=== PATIENT | male | born 1980 | race Caucasian/White ===

== ENCOUNTER 2024-05-25 05:57 | Day surgery (SDC) | payer OTHER, SELFPAY ==
[2024-05-23 15:03] VITALS: BMI 31.4
--- NOTE | 2024-05-23 15:11 | PC.NURSE ---
Report to the Outpatient Waiting Room, entrance under the green pavilion located off [facility], at time _0700__ on date _05/25/24_. Planned Procedure Time: _0900_.? Time changes happen often and if your time is changed the preop area will call you the afternoon before. - You and your visitor will be asked to self-screen and do not enter if you have any COVID symptoms. Please call surgeon if you need to reschedule. - A mask is optional within the hospital at this time. Patients may have clear liquids (water, carbonated beverages, clear teas, apple juice) until 3 hours prior to surgery with a maximum of 20 ounces. - No food from midnight until time of surgery and no smoking, or chewing tobacco (or any form of nicotine). No chewing gum, candy or mints. - Infants may have breast milk until 4 hours before surgery, infant formula 6 hours prior to surgery. - Children will be allowed to drink immediately following surgery.? If applicable, please bring a bottle or sippy cup to assist with drinking. Juice, water, soda, and popsicles are readily available.? For infants on formula, please bring formula the day of surgery.? Pacifiers are allowed. Take only the following medications with a SIP of water on the morning of surgery: ____NONE DO NOT STOP ANY OF YOUR OTHER PRESCRIPTION MEDICATIONS PRIOR TO SURGERY EXCEPT THE FOLLOWING Hold all vitamins and supplements for 3 days per anesthesiologist. Medications to discontinue per physician Date to take last dose Please no make-up, nail faroese, hairspray, perfume, deodorant, or body powder the day of surgery.? No jewelry (including any body piercings) or valuables the day of surgery, leave them at home.? Please take a shower or bath the night before, or the morning of, surgery with an antibacterial soap.? Wear comfortable, loose fitting clothing.? Children are encouraged to wear pajamas. - Jewelry must be removed prior to entering the operating room.? Rings and piercings that are not removed may be cut off. - The hospital will not accept responsibility for valuables.? - Please leave all valuables, including medications, at home the day of surgery. If you are going home after surgery, a licensed truck driver teamster must drive you home.? - NO public transportation without another adult if you receive anesthesia. - We recommend that an adult stay with you for 24 hours following discharge. - We also recommend that you do not drive, make important decision, drink alcoholic beverages, or take any drugs that were not prescribed by your health care provider for at least 24 hours after your discharge time. For Pediatric surgeries, we recommend two adults accompany the child home. Follow any additional instructions given to you from your surgeon. Telephone instructions given to ____PATIENT_and asked if any additional questions and then verbalized understanding. Patient advised to call surgeon office or pre surgery nurse liaison [phone] if any additional questions.
--- NOTE | 2024-05-24 08:05 | PM.IMHP ---
H&P: HPI History of Present Illness Date/Time: 05/24/24 08:05 Chief Complaint: chronic tonsillitis Narrative: 44-year-old male ex smoker( 1 pack per day for 15 years, quit 2 years ago) with Crohn disease and tonsil asymmetry, and left tonsil mass Review of Systems Constitutional: Constitutional: Reports as per HPI ENT: Reports as per HPI [facility] Past Medical History Medical History (Updated 05/24/24 @ 08:07 by Brianna Agrawal MD) Allergic rhinitis Left-sided tinnitus Cryptic tonsil Tonsil neoplasm Tonsil asymmetry Cyst of tonsil Social History Social History Smoking packs per day: 1 Smoking cigarettes per day: 20.0 Years smoked: 15 Smoking pack-years: 15.00 Smoking status: Former smoker Tobacco type: cigarettes Additional smoking assessment comments: QUIT 2022 Alcohol intake: current Drinks per week: 7 Living arrangements: with family Meds Home Medications and Allergies Home Medications ?Medication ?Instructions ?Recorded ?Confirmed ?Type azelastine 137 mcg (0.1 %) nasal 1 spray intranasal Q12H 1 month 05/11/24 05/23/24 Rx spray #30 mL amlodipine 5 mg tablet 5 mg PO HS 05/23/24 05/23/24 History Allergies Allergy/AdvReac Type Severity Reaction Status Date / Time No Known Allergies Allergy Unverified 05/23/24 15:02 Exam Const: General: cooperative, healthy appearing, comfortable, no acute distress, alert and awake HENMT: Head: normocephalic and atraumatic Ears: external ears normal and EAC's normal Face/Nose/Sinus: Normal external nose present and Normal nares present Mouth: Yes Normal oral and palatal mucosa present and Yes lip normal Assessment and Plan Assessment and plan (1) Chronic tonsillitis: Code(s): J35.01 - Chronic tonsillitis Status: Acute Plan 44-year-old male ex smoker( 1 pack per day for 15 years, quit 2 years ago) with Crohn disease and tonsil asymmetry, and left tonsil mass -1 cm mass in the upper pole of the left tonsillar bed, causing asymmetry of the tonsils no other lesions could be found - taking into account the positive history of smoking and family history of cancer, and persistence of the mass since 2 months we will recommend tonsillectomy - will plan tonsillectomy -Risks for tonsillectomy were discussed including but not limited to bleeding infection, injury to teeth, gums, lips and/or tongue. TMJ problems. Delayed bleeding that may require further surgery. All the questions were answered to the best of my ability and the patient wished to proceed. The procedures will be scheduled in a timely fashion.
[2024-05-25] VITALS (11 sets, daily range): BP systolic 132–147; BP diastolic 68–106; PULSE 64–108; RESP 12–24; TEMP 36.1–36.5; O2SAT 94–100
--- OUTSIDE RECORDS SUMMARY | 2024-05-25 06:00 | XMS_ITS | Continuity of Care Document ---
Author Organization [facility] Address [address] [place] [id number] Phone Care Team Providers Care Business Systems Consultant Name Role Phone Alexys Oliva MD Unavailable Unavailable Procedures Procedure Date Init Inpt [facility] [place] [facility] [facility]&m Minr Compl 7 Subsqt Hosp-da E&m Minr Compl 7 Subsqt Hosp-da E&m Minr Compl 7 Subsqt Hosp-da E&m Minr Compl 7 Subsqt Hosp-da E&m Minr Compl 7 Subsqt Hosp-da E&m Minr Compl 7 Subsqt Hosp-da E&m Minr Compl 7 Subsqt Hosp-da E&m Minr Compl 7 Subsqt Hosp-da E&m Minr Compl 7 Subsqt Hosp-da E&m Minr Compl 7 Subsqt Hosp-da E&m Minr Compl 7 Subsqt Hosp-da E&m Minr Compl 7 Subsqt Hosp-da E&m Minr Compl 7 Advance Directives Directive Yes / No Effective Date File Name No Information Encounters Encounter Description Practice Location Reason(s) For Visit Diagnoses Date Provider Providers Copied on Encounter Init Inpt [facility], [address] [place] [address], [place], [place], [id number] tel:[phone] [address] [place] [address] Gastroenterol ogy Asso [facility] No Information 7 Hazel Reardon. [address] [place] [address], [id number] , [place]. tel:[phone] Family History Family Member Type Diagnosis Age At Onset No Information Payers Payer name Insurance type Covered republican ID Authoriza tion(s) No Information Social History Type Description Quantity Date Captured Comments Sex Male Smoking Status No Information Chief Complaint And Reason For Visit No Information Reason For Referral Reason For Referral No Information History Of Present Illness Encounter Date Complaint History Of Prese nt Illness No Information Functional Status Date Functional Assessmen t No Information Instructions Date Instruction Additional Infor mation No Information Assessments Type Assessment Date No Information Patient Care Teams Name Effective Dates (start - stop) Status Members No Information
--- OUTSIDE RECORDS SUMMARY | 2024-05-25 06:00 | XMS_ITS | Clinical Summary ---
Author Organization [facility] Address [address] [place] [address] Care Team Providers Care Wet Machine Tender Name Role Phone Atiya Crisostomo PUNCHING MACHINE OPERATOR Primary Care Provider [phone] Allergies No known active allergies Medications multi vitamin/minerals (THERA-M ENHANCED) tablet Take 1 tablet by mouth daily. Active adalimumab (HUMIRA) 40 MG/0.4ML prefilled syringe kit Inject 40 mg into the skin every 14 (fourteen) days. Active folic acid (FOLVITE) 800 MCG tablet Take 800 mcg by mouth daily. Active Immunizations Name Administration Dates Next Due Influenza (Generic) 01/29/2016 Influenza Adult (Generic) 02/16/2019,01/03/2017, 01/19/2013 Tdap (Boostrix) 02/28/2017 Social History Tobacco Use Types Packs/Day Years Used Date Smoking Tobacco: Former Cigarettes Q uit: 2016 Smokeless Tobacco: Never Alcohol Use Standard Drinks/Week Comments Yes 0 (1 standard drink = 0.6 oz pur e alcohol) socially Sex and Gender Information Value Date Recorded Sex Assigned at Not on file Legal Sex Male 4:12 PM CDT Gender Identity Not on file Sexual Orientation Not on file Last Filed Vital Signs Vital Sign Reading Time Taken Comments Blood Pressure 118/92 02/10/2022 12:00 PM PIPE FITTER APPRENTICE Pulse 78 02/10/2022 12:00 PM PIPE FITTER APPRENTICE Temperature 36.3 C (97.4 F) 02/10/2022 11:44 AM PIPE FITTER APPRENTICE Respiratory Rate 29 02/10/2022 12:00 PM PIPE FITTER APPRENTICE Oxygen Saturation 94% 02/10/2022 12:00 PM PIPE FITTER APPRENTICE Inhaled Oxygen Concentration - - Weight 90.7 kg (200 lb) 02/10/2022 10:01 AM PIPE FITTER APPRENTICE Height 182.9 cm (6') 02/10/2022 10:01 AM PIPE FITTER APPRENTICE Body Mass Index 27.12 02/10/2022 10:01 AM PIPE FITTER APPRENTICE Plan of Treatment Health Maintenance Due Date Last Done Comments Annual Physical 01/21/1983 PHQ-2 (Physician [place]) 1992 Hepatitis B Vaccines (1 of 3 - 19+ 3-dose series) 01/21/1999 COVID-19 Vaccine ( season) 2023 01/21/2022, 07/06/2021, 07/23/2020, Additional history exists Influenza Adult (#1) 2024 01/21/2022, 02/16/2019, 01/03/2017, Additional history exists PHQ-2 (Physician [place]) 04/04/2024 DTaP, Tdap and Td Vaccines (2 - Td or Tdap) 02/28/2027 02/28/2017 Hepatitis C Completed 01/03/2017 HPV Vaccines Aged Out No longer eligi ble based on patient's age to complete this topic Meningococcal B Vaccine Aged Out No l onger eligible based on patient's age to complete this topic Meningococcal Vaccine Aged Out No haresh grey eligible based on patient's age to complete this topic Pneumococcal Vaccine: Pediatrics (0 to 5 Years) and At-Risk Patients (6 to 64 Years) Aged Out No longer eligible based on patient's age to complete this topic RSV Immunizations Under 20 Months Aged Out No longer eligible based on patient's age to complete this topic Procedures Procedure Name Priority Date/Time Associated Diagnosis Comments HEPATITIS PANEL,ACUTE Routine 01/03/2017 3:45 PM CDT from Last 3 Months or Most Recently Relevant to Health Maintenance Results * HEPATITIS PANEL,ACUTE (01/03/2017 3:45 PM CDT) HAV IGM NON-REACTI VE NON-REACTI VE 01/04/2017 5:[address] [facility] Comment: TESTING PERFORMED AT [facility] [address] [place] [phone] HEPATITIS B SURFACE AG NON-REACTI VE NON-REACTI VE 01/04/2017 5:42 PM CDT [facility] Comment: TESTING PERFORMED AT [address] [address] HEP B CORE IGM NON-REACTI VE NON-REACTI VE 01/04/2017 5:42 PM CDT [facility] Comment: TESTING PERFORMED AT [address] [address] HEPATITIS C AB NON-REACTI VE NON-REACTI VE 01/04/2017 5:42 PM CDT [facility] Comment: TESTING PERFORMED AT [place] [id number] 01/03/2017 3:45 PM CDT 01/03/2017 3:49 PM CDT us Generic Conversion [facility] Final R esult [facility] [address] [place] [phone], from Last 3 Months or Most Recently Relevant to Health Maintenance Additional Health Concerns Infection Onset Date Last Indicated C. difficile 01/14/2017 01/14/2017 Insurance [employer] Care Teams Wet Machine Tender Relationship Specialty Start Date End Date Atiya Crisostomo NP [address] [facility] [address] [place], [place] [id number] PCP - General 11/01/16
--- OUTSIDE RECORDS SUMMARY | 2024-05-25 06:00 | XMS_ITS | Encounter Summary ---
Author Organization [facility] Address [address] [place] [address] Care Team Providers Care Substance Abuse Rn Name Role Phone Atiya Crisostomo NP Primary Care Provider [phone] Reason for Referral * (Routine) - Closed Specialty Diagnoses / Procedures Referred By Contac t Referred To Contact Diagnoses Abdominal pain, chronic, bilateral lower quadrant Procedures CT ABD+PEL W CON Margarito Savage MD [address] [place] [address] Phone: tel: fax: Referral ID Status Reason Start Date Expiration Date Visits Re quested Visits Authorized [id number] Closed 02/21/2017 03/24/2018 1 1 APPLICATOR Encounter Details Date Type Department Care Team (Late st Contact Info) Description 02/21/2017 Community Orders [facility] EPICCARE LINK Margarito Svaage MD [address] [place] [phone] Social History Tobacco Use Types Packs/Day Years Used Date Smoking Tobacco: Never Assessed Sex and Gender Information Value Date Recorded Sex Assigned at Not on file Legal Sex Male 4:12 PM CDT Gender Identity Not on file Sexual Orientation Not on file documented as of this encounter Plan of Treatment Not on file documented as of this encounter Results * CT ABD+PEL W CON (02/28/2017 11:46 AM TILE APPLICATOR) Anatomical Region Laterality Modality Abdomen Computed Tomogra phy 02/28/2017 11:5 6 AM TILE APPLICATOR Impressions 02/28/2017 12:07 PM TILE APPLICATOR =====IMPRESSION:===== Short segment of bowel wall thickening is seen involving the ascending colon as well as the distal aspect of the ileum. These likely represent areas of enteritis and colitis. Colonic neoplasm is not excluded . There is a large amount of stool in the course of the colon. The Increasing diastases of the rectus abdominal musculature is seen inferior to the umbilicus with bowel loops protruding into the area of diastases or hernia without bowel obstruction Narrative 02/28/2017 12:07 PM TILE APPLICATOR EXAMINATION: CT Abdomen and Pelvis with contrast EXAM DATE/TIME: 02/28/2017 9:20 AM REASON FOR EXAM: Abdominal pain, unspecified Crohn disease,, chronic mild abd pain, appendectomy COMPARISON: 01/02/2017 TECHNIQUE: Computed tomography of the abdomen and pelvis was obtained after administration of intravenous contrast, 100 mL Isovue 300 , according to routine protocol. Oral contrast was also administered. Automated exposure control was utilized during the imaging acquisition for dose reduction. Findings: Lung bases: There is minimal atelectasis at the lung bases Liver: There is no hepatic mass or intrahepatic biliary ductal dilatation. There is normal attenuation to the hepatic parenchyma. Gallbladder: There are no large calcified gallstones. There is no abnormal pericholecystic fluid collections or inflammatory process. Spleen: There is no splenic mass or splenomegaly. Pancreas: There is no pancreatic mass or pancreatic ductal dilatation. There is no peripancreatic inflammatory change. Adrenal glands: The adrenal glands are normal size and configuration. Kidneys: Benign-appearing left renal cyst is seen measuring 2 cm in greatest dimension. There is no hydronephrosis. Aorta: There is no aortic aneurysm. IVC: Normal Large and small bowel: There is a large amount of stool throughout the course of the colon. There is a focal region of bowel wall thickening involving the ascending colon which may represent mild colitis. Colonic neoplasm is not excluded. There is no small bowel obstruction. There is a short segment of wall thickening involving the distal ileum also likely representing enteritis. Regions of wall thickening has improved as compared to the prior study Urinary bladder: The urinary bladder is grossly normal. Lumbar vertebrae are unremarkable. There is increasing diastases of the rectus abdominal musculature inferior to the umbilicus. Bowel loops protrude into the region of diastases, or anterior pelvic wall hernia Procedure Note Arjun Toney MD - 02/28/2017 EXAMINATION: CT Abdomen and Pelvis with contrast EXAM DATE/TIME: 02/28/2017 9:20 AM REASON FOR EXAM: Abdominal pain, unspecified Crohn disease,, chronic mild abd pain, appendectomy COMPARISON: 01/02/2017 TECHNIQUE: Computed tomography of the abdomen and pelvis was obtainedafter administration of intravenous contrast, 100 mL Isovue 300 , according toroutine protocol. Oral contrast was also administered. Automated exposure controlwas utilized during the imaging acquisition for dose reduction. Findings: Lung bases: There is minimal atelectasis at the lung bases Liver: There is no hepatic mass or intrahepatic biliary ductal dilatation.There is normal attenuation to the hepatic parenchyma. Gallbladder: There are no large calcified gallstones. There is noabnormal pericholecystic fluid collections or inflammatory process. Spleen: There is no splenic mass or splenomegaly. Pancreas: There is no pancreatic mass or pancreatic ductal dilatation.There is no peripancreatic inflammatory change. Adrenal glands: The adrenal glands are normal size and configuration. Kidneys: Benign-appearing left renal cyst is seen measuring 2 cm ingreatest dimension. There is no hydronephrosis. Aorta: There is no aortic aneurysm. IVC: Normal Large and small bowel: There is a large amount of stool throughout thecourse of the colon. There is a focal region of bowel wall thickening involvingthe ascending colon which may represent mild colitis. Colonic neoplasm isnot excluded. There is no small bowel obstruction. There is a short segment ofwall thickening involving the distal ileum also likely representingenteritis. Regions of wall thickening has improved as compared to the prior study Urinary bladder: The urinary bladder is grossly normal. Lumbar vertebrae are unremarkable. There is increasing diastases of the rectus abdominal musculature inferiorto the umbilicus. Bowel loops protrude into the region of diastases, oranterior pelvic wall hernia =====IMPRESSION:===== Short segment of bowel wall thickening is seen involving the ascendingcolon as well as the distal aspect of the ileum. These likely represent areas of enteritis and colitis. Colonic neoplasm is not excluded . There is alarge amount of stool in the course of the colon. The Increasing diastases of the rectus abdominal musculature is seen inferiorto the umbilicus with bowel loops protruding into the area of diastases orhernia without bowel obstruction us Margarito Savage MD CT Final Result documented in this encounter Visit Diagnoses Diagnosis Abdominal pain, chronic, bilateral lower quadrant- Primary Abdominal pain, right lower quadrant Abdominal pain, chronic, bilateral lower quadrant Abdominal pain, right lower quadrant documented in this encounter Additional Health Concerns Infection Onset Date Last Indicated Resolved Time C. difficile 01/14/2017 01/14/2017 documented as of this encounter Care Teams Substance Abuse Rn Relationship Specialty Start Date End Date Atiya Crisostomo NP [address] [place] [address] [address] [place] [address] PCP - General 11/01/16 documented as of this encounter
--- OUTSIDE RECORDS SUMMARY | 2024-05-25 06:00 | XMS_ITS | Data Portability ---
Author Organization [facility] Address [address] [facility], [place] [address] Care Team Providers Care Asthma Educator Name Role Phone TERE LANGE Primary Care Provider FLYNN KRAUS Program Management Analyst Assessment No assessment recorded. Plan of Treatment Reminders Order Date Submit Date Provider Last Modified By Organization Details Last Modified Time Details Appointments ANY 15 2024 01:45P M Tere Lange NP-Sandie Not available Not available Not available Lab TSH + free T4, serum 2023 024 [facility], [address] [place] [address], [place] [address], [place], [address], 04/12/2024 11:15:04 CMP, serum or plasma 2023 024 [facility], [address] [place], [place] [address]marianna Aashish, [facility] [address], [place], [address], 04/11/2024 22:07:22 lipid panel, serum 2023 024 [facility], [facility], [facility] [address], [place], [address], 04/11/2024 22:07:20 albumin /creati nine, mass ratio, urine 2023 024 [facility], [address] [place], [place] [address]marianna Aashish, [facility] [address], [place], [address], 04/12/2024 11:15:03 CBC w/ auto diff 2023 024 [facility], [address] [facility] [address], [address], [place], [address], 04/11/2024 22:07:23 lipid panel, serum 2017 018 [facility], [address] [facility] [address], [address], [place], [address], 08/17/2017 11:16:58 TSH, ultra-s ensitiv e, serum 2017 018 [facility], [address] [facility], [address], [place], [address], 08/17/2017 11:16:58 CBC w/ auto diff 2017 018 [facility], [address] [facility] [address], [address], [place], [address], 08/17/2017 11:16:56 BMP, serum or plasma 2017 018 [facility], [address] [facility] [address], [address], [place], [address], 08/17/2017 11:16:[address] referra l - cyst in left tonsil. Please eval and treat 2023 024 [facility] - Otolaryngology (Ent), [address] [facility] , [address], [place], [address], 05/14/2024 15:23:32 gastroe nterolo gist referra l - Crohn's disease on humira. Please eval and treat 2023 024 kait Davis MD, [address] [facility] , [address], [place], [address], 05/14/2024 14:36:09 Procedures None recorde d. Surgeries None recorde d. Imaging None recorde d. Medication Orders amlodip ine 5 mg tablet 2023 024 [facility] [id number] [facility], [address] [facility], [place], [address], 03/13/2024 16:45:14 Patient TargetsNo targets recorded. Patient Instructions Encounter Date Encounter Id Patient Instructions Last Modified By Organization Details Last Modified Time 06/20/2019 [id number] piriformis syndrome: exercises [place] [id number] Not available 06/20/2019 16:16:29 03/13/2024 [id number] A healthy lifestyle: care instructions [place] [id number] Not available 03/13/2024 17:00:11 Reason for Referral Program Management Analyst Referral for Crohn's disease Crohn's disease on humira. Please eval and treat Referring Physician: Tere Lange Manager Of Administration, Encounter Date: 03/13/2024 Long Chain Dyeing Machine Operator Referral fo r Cyst of tonsil cyst in left tonsil. Please eval and treat Referring Physician: Tere Lange Manager Of Administration, Encounter Date: 03/13/2024 Results Created Date Observation Date Name Description Value Unit Range Abnormal Flag Note LastModifiedBy Organization Detail LastModifiedTime 08/17/19 18 08/17/2017 CBC w/ auto diff WBC 6.6 x10e3 /uL 3.4-10 .8 Not Available [facility] ([facility]) [address] [facility], [place], [address], 08/17/2017 11:16:56 08/17/19 18 08/17/2017 CBC w/ auto diff RBC 4.56 x10e6 /uL 4.14-5 .80 Not Available [facility] ([facility]) [address] [facility], [place], [address], 08/17/2017 11:16:56 08/17/19 18 08/17/2017 CBC w/ auto diff hemoglobin 13.5 g/dL 13.0-1 7.7 Not Available [facility] ([facility]) [address] [place], [address], 08/17/2017 11:16:56 08/17/19 18 08/17/2017 CBC w/ auto diff hematocrit 42.4 % 37.5-5 1.0 Not Available [facility] ([facility]) [address] [facility], [place], [address], 08/17/2017 11:16:56 08/17/19 18 08/17/2017 CBC w/ auto diff MCV 93 fL 79-97 Not Available [facility] ([facility]) [address] [place], [address], 08/17/2017 11:16:56 08/17/19 18 08/17/2017 CBC w/ auto diff MCH 29.6 pg 26.6-3 3.0 Not Available [facility] ([facility]) [address] [place], [address], 08/17/2017 11:16:56 08/17/19 18 08/17/2017 CBC w/ auto diff MCHC 31.8 g/dL 31.5-3 5.7 Not Available [facility] ([facility]) [address] [facility], [place], [address], 08/17/2017 11:16:56 08/17/19 18 08/17/2017 CBC w/ auto diff RDW 13.1 % 12.3-1 5.4 Not Available [facility] ([facility]) [address] [place], [address], 08/17/2017 11:16:56 08/17/19 18 08/17/2017 CBC w/ auto diff platelets 290 x10e3 /uL 150-37 9 Not Available [facility] ([facility]) [address] [place], [address], 08/17/2017 11:16:56 08/17/19 18 08/17/2017 CBC w/ auto diff neutrophils 61 % not estab. Not Available [facility] ([facility]) [address] [place], [address], 08/17/2017 11:16:56 08/17/19 18 08/17/2017 CBC w/ auto diff lymphs 30 % not estab. Not Available [facility] ([facility]) [address] [place], [address], 08/17/2017 11:16:56 08/17/19 18 08/17/2017 CBC w/ auto diff monocytes 6 % not estab. Not Available [facility] ([facility]) [address] [place], [address], 08/17/2017 11:16:56 08/17/19 18 08/17/2017 CBC w/ auto diff eos 2 % not estab. Not Available [facility] ([facility]) [address] [place], [address], 08/17/2017 11:16:56 08/17/19 18 08/17/2017 CBC w/ auto diff basos 1 % not estab. Not Available [facility] ([facility]) [address] [place], [address], 08/17/2017 11:16:56 08/17/19 18 08/17/2017 CBC w/ auto diff immature cells DATACAP DEVELOPER Not Available [facility] ([facility]) [address] [place], [address], 08/17/2017 11:16:56 08/17/19 18 08/17/2017 CBC w/ auto diff neutrophils (absolute) 4.1 x10e3 /uL 1.4-7. 0 Not Available [facility] ([facility]) [address] [place], [address], 08/17/2017 11:16:56 08/17/19 18 08/17/2017 CBC w/ auto diff lymphs (absolute) 2.0 x10e3 /uL 0.7-3. 1 Not Available [facility] ([facility]) [address] [facility], [place], [address], 08/17/2017 11:16:56 08/17/19 18 08/17/2017 CBC w/ auto diff monocytes(ab solute) 0.4 x10e3 /uL 0.1-0. 9 Not Available [facility] ([facility]) [address] [facility], [place], [address], 08/17/2017 11:16:56 08/17/19 18 08/17/2017 CBC w/ auto diff eos (absolute) 0.1 x10e3 /uL 0.0-0. 4 Not Available [facility] ([facility]) [address] [facility], [place], [address], 08/17/2017 11:16:56 08/17/19 18 08/17/2017 CBC w/ auto diff baso (absolute) 0.0 x10e3 /uL 0.0-0. 2 Not Available [facility] ([facility]) [address] [facility], [place], [address], 08/17/2017 11:16:56 08/17/19 18 08/17/2017 CBC w/ auto diff immature granulocytes 0 % not estab. Not Available [facility] ([facility]) [address] [facility], [place], [address], 08/17/2017 11:16:56 08/17/19 18 08/17/2017 CBC w/ auto diff immature grans (abs) 0.0 x10e3 /uL 0.0-0. 1 Not Available [facility] ([facility]) [address] [place], [address], 08/17/2017 11:16:56 08/17/19 18 08/17/2017 CBC w/ auto diff NRBC DATACAP DEVELOPER Not Available [facility] ([facility]) [address] [place], [address], 08/17/2017 11:16:56 08/17/19 18 08/17/2017 CBC w/ auto diff hematology comments: DATACAP DEVELOPER Not Available [facility] ([facility]) [address] [facility] [place], [address], 08/17/2017 11:16:56 08/17/19 18 08/17/2017 BMP, serum or plasm a glucose 91 mg/dL 65-99 Not Available [facility] ([facility]) [address] [facility] [place], [address], 08/17/2017 11:16:57 08/17/19 18 08/17/2017 BMP, serum or plasm a BUN 12 mg/dL 6-20 Not Available [facility] ([facility]) [address] [place], [address], 08/17/2017 11:16:57 08/17/19 18 08/17/2017 BMP, serum or plasm a creatinine 0.98 mg/dL 0.76-1 .27 Not Available [facility] ([facility]) [address] [facility] [place], [address], 08/17/2017 11:16:57 08/17/19 18 08/17/2017 BMP, serum or plasm a eGFR if nonafricn AM 98 mL/mi n/1.7 3 >59 Not Available [facility] ([facility]) [address] [place], [address], 08/17/2017 11:16:57 08/17/19 18 08/17/2017 BMP, serum or plasm a eGFR if africn AM 113 mL/mi n/1.7 3 >59 Not Available [facility] ([facility]) [address] [place], [address], 08/17/2017 11:16:57 08/17/19 18 08/17/2017 BMP, serum or plasm a BUN/creatini ne ratio 12 9-20 Not Available [facility] ([facility]) [address] [place], [address], 08/17/2017 11:16:57 08/17/19 18 08/17/2017 BMP, serum or plasm a sodium 139 mmol/ L 134-14 4 Not Available [facility] ([facility]) [address] [facility] [place], [address], 08/17/2017 11:16:57 08/17/19 18 08/17/2017 BMP, serum or plasm a potassium 4.5 mmol/ L 3.5-5. 2 Not Available [facility] ([facility]) [address] [facility] [place], [address], 08/17/2017 11:16:57 08/17/19 18 08/17/2017 BMP, serum or plasm a chloride 102 mmol/ L 96-106 Not Available [facility] ([facility]) [address] [facility] [place], [address], 08/17/2017 11:16:57 08/17/19 18 08/17/2017 BMP, serum or plasm a carbon dioxide, total 24 mmol/ L 18-29 Not Available [facility] ([facility]) [address] [facility] [place], [address], 08/17/2017 11:16:57 08/17/19 18 08/17/2017 BMP, serum or plasm a calcium 9.5 mg/dL 8.7-10 .2 Not Available [facility] ([facility]) [address] [facility] [place], [address], 08/17/2017 11:16:57 08/17/19 18 08/17/2017 lipid panel , serum cholesterol, total 160 mg/dL 100-19 9 Not Available [facility] ([facility]) [address] [facility] [place], [address], 08/17/2017 11:16:58 08/17/19 18 08/17/2017 lipid panel , serum triglyceride s 158 mg/dL 0-149 above high normal Not Available [facility] ([facility]) [address] [facility], [place], [address], 08/17/2017 11:16:58 08/17/19 18 08/17/2017 lipid panel , serum HDL cholesterol 53 mg/dL >39 Not Available [facility] ([facility]) [address] [facility], [place], [address], 08/17/2017 11:16:58 08/17/19 18 08/17/2017 lipid panel , serum VLDL cholesterol samuel 32 mg/dL 5-40 Not Available [facility] ([facility]) [address] [facility], [place], [address], 08/17/2017 11:16:58 08/17/19 18 08/17/2017 lipid panel , serum LDL cholesterol calc 75 mg/dL 0-99 Not Available [facility] ([facility]) [address] [facility], [place], [address], 08/17/2017 11:16:58 08/17/19 18 08/17/2017 lipid panel , serum comment: DATACAP DEVELOPER Not Available [facility] ([facility]) [address] [facility], [place], [address], 08/17/2017 11:16:58 08/17/19 18 08/17/2017 TSH, ultra -sens itive , serum TSH 2.180 uIU/m L 0.450- 4.500 Not Available [facility] ([facility]) [address] [facility], [place], [address], 08/17/2017 11:16:58 02/11/20 22 02/10/2022 VALARIE SURGI SAMUEL PATHO LOGY [facility] surgical pathology [facility] [address] [place] [address] Phone : [phone] Fax: Depar tment of Patho logy Patho logy Repor t SURGI SAMUEL FINAL REPOR T Patie nt Name: ROBER OCAMPO luis f# : [id number] : [birth year] (Age: 42) Locat ion: CRISTY Cat Briceno r: M Colle cted Date: 2021 [facility] Rec #: [id number] Date Recei willie: 2021 Date Repor kiah: 02/11 Provi cassandra: FLYNN FAYE A DO MAGDA PINEDA MD Speci men(s ) A: Colon Biops y, Termi nal Ileum B: Colon Biops y, Ascen ding and Cecum C: Colon Biops y, Trans verse D: Colon Biops y, Desce nding E: Colon Biops y, Sigmo id and Rectu m Final Patho logic Diagn osis A. TERMI NAL ILEUM , BIOPS Y: ACUTE ILEIT IS NEGAT JUAN JOSE FOR DYSPL HUBERT B. ASCEN DING COLON AND CECUM , BIOPS Y: MINIM AL CHRON IC COLIT IS NEGAT JUAN JOSE FOR DYSPL HUBERT C. TRANS VERSE COLON , BIOPS Y: MINIM AL CHRON IC COLIT IS NEGAT JUAN JOSE FOR DYSPL HUBERT D. DESCE NDING COLON , BIOPS Y: MINIM AL CHRON IC COLIT IS NEGAT JUAN JOSE FOR DYSPL HUBERT E. SIGMO ID COLON AND RECTU M, BIOPS Y: MINIM AL CHRON IC COLIT IS NEGAT JUAN JOSE FOR DYSPL HUBERT Sarah ctron icall y [facility] d Out ALLIS ON T MARIELOS Shelton MD Patho logis t ATB:s ml1 Micro scopi c Descr iptio n: The micro scopi c exami natio n suppo rts the above diagn osis. Clini samuel Histo ry Crohn 's, termination clerk drug thera py Gross Descr iptio n Recei willie are five forma theodore-f illed conta iners all label ed with the patie nt's name (Susan rincon) , date of (01/03 0). A. Addit ional ly label ed term inal ileum biops ies, colle ction time 02/10 at 1115. The speci men consi sts of two friab le pink- narvaez to red-p ink fragm ents of tissu e, measu ring 0.3 and 0.5 cm in great est dimen luis f admix ed with minim al veget ative mater ial. The speci men is submi tted in toto in casse tte A1. B. Addit ional ly label ed cecu m and asce nding colon biops ies, colle ction time 02/10 at 1116. The speci men consi sts of an innum erabl e amoun t of pink- narvaez to yello w-narvaez fragm ent of semit ransl ucent of tissu e, measu ring 2.0 x 0.4 x 0.2 cm in aggre gate dimen sions . The speci men is submi tted in toto in casse tte B1. C. Addit ional ly label ed cecu m and rodgers svers e colon biops ies, colle ction time 02/10 at 1120. The speci men consi sts of multi ple pink- narvaez to red-p ink fragm ents of semit ransl ucent of tissu e, rangi ng from 0.2 cm up to 0.5 cm in aggre gate dimen luis f. The speci men is submi tted in toto in casse tte C1. D. Addit ional ly label ed cecu m and desc endin g colon biops ies, colle ction time 02/10 at 1124. The speci men consi sts of multi ple semit ransl ucent pink- narvaez to red-p ink fragm ents of tissu e, rangi ng from 0.2 cm up to 0.4 cm in gt dimen luis f. The speci men is submi tted in toto in casse tte D1. E. Addit ional ly label ed cecu m and sigm oid colon and rectu m biops ies, colle ction time 02/10 at 1129. The speci men consi sts of multi ple semit ransl ucent pink- narvaez to red-p ink fragm ents of tissu e, rangi ng from 0.1 cm up to 0.8 cm in gt dimen luis f. The speci men is submi tted in toto in casse tte E1. :sml1 Kong ng Fee Code( s): 00007 (5) Not Available [facility] [address] [facility], [place], [address], 02/11/2022 18:20:14 02/29/[address] ABD+p el W con . [facility] [place] [address] EXAMIN ATION: CT Abdome n and Pelvis with contra st Access ion: [id number] EXAM DATE/T PAWAN: 2016 9:20 AM REASON FOR EXAM: Abdomi nal pain, unspec ified Crohn diseas e,, chroni c mild abd pain, append ectomy COMPAR VIMAL: 017 TECHNI QUE: Comput ed tomogr aphy of the abdome n and pelvis was obtain ed after admini strati on of intrav enous contra st, 100 mL Isovue 300 , accord ing to routin e protoc ol. Oral contra st was also admini stered . Automa kiah exposu re contro l was utiliz ed during the imagin g acquis ition for dose reduct ion. Findin gs: Lung bases: There is minima l atelec tasis at the lung bases Liver: There is no hepati c mass or intrah epatic biliar y ductal dilata tion. There is normal attenu ation to the hepati c parenc hyma. Gallbl adder: There are no large calcif ied gallst ones. There is no abnorm al perich olecys tic fluid collec tions or inflam matory proces s. Spleen : There is no spleni c mass or spleno megaly . Pancre as: There is no pancre atic mass or pancre atic ductal dilata tion. There is no peripa ncreat ic inflam matory change . Adrena l glands : The adrena l glands are normal size and config uratio n. Kidney s: Benign -appea ring left renal cyst is seen measur ing [facility] dimens ion. There is no hydron ephros is. Aorta: There is no aortic aneury sm. IVC: Normal Large and small bowel: There is a large amount of stool throug hout the course of the colon. There is a focal region of bowel wall thicke curly involv ing the ascend ing colon which may repres ent mild coliti s. Coloni c neopla sm is not exclud ed. There is no small bowel obstru ction. There is a short segmen t of wall thicke curly involv ing the distal ileum also likely repres enting enteri tis. Region s of wall thicke curly has improv ed as compar ed to the prior study Urinar y bladde r: The urinar y bladde r is grossl y normal . Lumbar verteb cathleen are unrema rkable . There is increa sing diasta ses of the rectus abdomi nal muscul ature inferi or to the umbili cus. Bowel loops protru de into the region of diasta ses, or anteri or pelvic wall hernia =====I MPRESS ION:== === Short segmen t of bowel wall thicke curly is seen involv ing the ascend ing colon as well as the distal aspect of the ileum. These likely repres ent areas of enteri tis and coliti s. Coloni c neopla sm is not exclud ed . There is a large amount of stool in the course of the colon. The Increa sing diasta ses of the rectus abdomi nal muscul ature is seen inferi or to the umbili cus with bowel loops protru ding into the area of diasta ses or hernia withou t bowel obstru ction ====== ====== ====== === Electr onical ly Signed By: Arjun trujillo MD on 2016 12:07 PM [email or web address] [facility] [address] [facility], [place], [address], 02/28/2017 14:19:10 12/13/19 20 MR, enter ogram , w/wo contr ast [facility] [address] [facility] [address] Exam: MRI entero graphy No compar vimal. Correl ating CT 2016. INDICA TION: Long histor y of Crohn diseas e. Follow -up evalua tion. TECHNI QUE: Precon trast and postco ntrast imagin g with 18 cc intrav enous Dotare m. Small volume of oral contra st materi al was also utiliz ed. FINDIN GS: There are no asymme trical ly disten ded small bowel segmen ts. No abnorm al small bowel wall thicke curly or mucosa l fold thicke curly. There is no substa ntial oral contra st materi al within the large bowel. Modera te diffus e disten tion is likely relate d to stool volume . Normal appear ance of the liver, spleen , adrena l glands , and pancre as. Normal appear ance of the gallbl adder and bile ducts. Nonenh ancing T2 hyperi ntense findin g within each kidney likely repres ent cysts. The larges t is on the left side and measur es about 3 cm. This was presen t on the prior CT. Right- sided findin g may have been presen t as well, but was diffic ult to visual ize with its size and the accomp anying slice thickn ess. No urinar y tract obstru ction. Normal variat ion with 2 right renal arteri es. There are multip le small bowel segmen ts in the right lower quadra nt. While the termin al ileum is not specif ically identi fied, none of the segmen ts show convin cing eviden ce of wall thicke curly, lumen reduct ion, or asymme tric dilati on. On the postco ntrast images , there is a long segmen t of small bowel which extend s toward s the right lower quadra nt. There has a transv erse orient ation. On the prior CT, the termin al ileum had a vertic al orient ation. There is no wall thicke curly eviden t of this segmen t on the precon trast or postco ntrast images . Unfort unatel y, there is no oral contra st materi al throug h this segmen t. The mild diffus e enhanc ement could simply repres ent normal enhanc ement of collap sed ileum. If patien t is curren tly having sympto ms, possib le mild inflam matory enhanc ement. No ascite s or focal fluid collec tion in the abdome n or pelvis . IMPRES LUIS F: 1. No convin cing small bowel eviden ce of active inflam matory bowel diseas e. 2. Probab le consti pation . 3. Bilate ral renal cysts. Electr onical ly Signed By: Alexys Feldman MD on 4:01 PM Interp reted By: Alexys Feldman MD, 3:[address], [place], [address], 12/13/2019 18:27:57 Result Notes None recorded. Problems Name Problem SNOMED Code Status Onset Date Resolution Date Notes Provider Name and Address Organization Details Recorded Time Smoker 16956316 Active Not Available [facility] 2 01:12:31 Allergic rhinitis [id number] Active Not Available [facility] 2 01:12:31 Crohn's disease 90769981 Active 2015 Not Available [facility] 2 01:12:31 History of appendectomy 134274011 Active 2016 Not Available [facility] 2 01:12:31 Problem Notes None recorded. Procedures Surgical History Date Name Laterality Status Provider Name and Address Organization Details Recorded Time 7 Suture/Stapl e removal completed GARRY Olmos Attn: Accounting,[address] [place], [address], [facility] 09/06/2016 12:49:39 7 Suture/Stapl e removal completed GARRY Olmos Attn: Accounting,[address] [place], [address], [facility] 08/04/2016 16:40:31 Imaging Results Imaging Date Name Status LastModified by Organiz ation Details LastModified Time 02/28/2017 CT ABD+pel W con completed [address], [address], 02/28/2017 14:19:10 12/13/2019 MR, enterogram, w/wo contrast completed [address] [facility], [place], [address], 12/13/2019 18:27:57 Procedure Notes None recorded. Medical Equipment None Reported. Allergies No known drug allergies Medications Name Sig Start Date Stop Date Status Note LastModified by Organization Details LastModified Time amoxicillin 500 mg capsule 08/16 completed Not Available Not Available Not Available bupropion HCl SR 150 mg tablet,12 hr sustained-r elease Take 1 tablet twice a day by oral route. 01/28 completed Not Available Not Available Not Available hydrocodone 5 mg-acetamin ophen 325 mg tablet 08/16 completed Not Available Not Available Not Available ondansetron HCl 4 mg tablet 08/16 completed Not Available Not Available Not Available azathioprin e 50 mg tablet Take 2 tablets every day by oral route in the morning for 30 days. 06/19 completed Not Available Not Available Not Available acetaminoph en 300 mg-codeine 30 mg tablet 08/16 completed Not Available Not Available Not Available amlodipine 5 mg tablet TAKE 1 TABLET BY MOUTH EVERY DAY active Not Available Not Available No t Available ketorolac 0.5 % eye drops 02/28 completed Not Available Not Available Not Available prednisolon e acetate 1 % eye drops,suspe nsion 01/12 completed Not Available Not Available Not Available ciprofloxac in 0.3 % eye drops 02/28 completed Not Available Not Available Not Available acetaminoph en 300 mg-codeine 60 mg tablet 08/16 completed Not Available Not Available Not Available amoxicillin 875 mg-potassiu m clavulanate 125 mg tablet 01/28 completed Not Available Not Available Not Available amoxicillin 500 mg-potassiu m clavulanate 125 mg tablet TAKE 1 TABLET BY MOUTH EVERY 8 HOURS FOR 10 DAYS 03/13 completed Not Available Not Available Not Available Humira Pen 40 mg/0.8 mL subcutaneou s kit INJECT 1 PEN SUBCUTANE OUSLY EVERY TWO WEEKS active Not Available Not Available No t Available Vitals Date Recorded Body height Body mass index (BMI) Body weight Body temperature Heart rate Systolic blood pressure Diastolic blood pressure Provider Name and Address Organization Details Last Updated DateTime 8 182.88 cm 23.6 kg/m2 97097.0 7 g 98.2 [degF] 74 /min 112 mm[Hg] 72 mm[Hg] Wilfredo Aleman MA [facility] 8 14:44:40 Date Recorded Body height Body mass index (BMI) Body weight Body temperature Heart rate Oxygen saturation Oxygen saturation in Arterial blood by Pulse oximetry Systolic blood pressure Diastolic blood pressure Provider Name and Address Organization Details Last Updated DateTime 8 182.88 cm 24 kg/m2 99601.8 5 g 98.2 [degF] 51 /min 99 % 99 % 138 mm[Hg] 86 mm[Hg] Angelika Singletary MA [facility] 8 10:46:01 Date Recorded Body temperature Provider Name a tn Address Organization Details Last Updated DateTime 06/20/2019 98.4 [degF] Valentine Richter MA [facility] 020 15:55:22 Date Recorded Body height Body mass index (BMI) Body weight Heart rate Oxygen saturation Oxygen saturation in Arterial blood by Pulse oximetry Systolic blood pressure Diastolic blood pressure Provider Name and Address Organization Details Last Updated DateTime 0 182.88 cm 25 kg/m2 40255 g 73 /min 98 % 98 % 120 mm[Hg] 80 mm[Hg] Angelika Singletary MA [facility] 0 15:58:17 Date Recorded Body height Body mass index (BMI) Body weight Body temperature Heart rate Oxygen saturation Oxygen saturation in Arterial blood by Pulse oximetry Systolic blood pressure Diastolic blood pressure Provider Name and Address Organization Details Last Updated DateTime 4 182.88 cm 31.9 kg/m2 410614. 21 g 97.7 [degF] 76 /min 99 % 99 % 162 mm[Hg] 114 mm[Hg] Leisa Juárez MA [facility] 4 16:33:34 Date Recorded Systolic blood pressure Diastolic blood pressure Provider Name and Address Organization Details Last Updated DateTime 03/13/2024 156 mm[Hg] 106 mm[Hg] GARRY Olmos Attn: Accounting,[address] [facility], [place], [address], [place] - [facility] 03/13/2024 16:44:03 Date Recorded Body height Body mass index (BMI) Body weight Oxygen saturation Oxygen saturation in Arterial blood by Pulse oximetry Heart rate Body temperature Systolic blood pressure Diastolic blood pressure Provider Name and Address Organization Details Last Updated DateTime 7 182.88 cm 23.3 kg/m2 17136.8 9 g 99 % 99 % 76 /min 98.1 [degF] 110 mm[Hg] 70 mm[Hg] Iram Rosenbaum [facility] 7 14:22:33 Social History Question Answer Notes LastModified by Organizat ion Details LastModified Time Tobacco Smoking Status Former Smoker BECKI Bolivar, [facility] 03/13/2024 16:32:03 What Is Your Level Of Alcohol Consumption? Occasional [id number] Information not available 02/05/2020 What Was The Date Of Your Most Recent Tobacco Screening? 03/13/2024 Information not available 03/13/2024 At What Age Did You Start Smoking Tobacco? 20 [id number] Information not available 02/05/2020 How Much Tobacco Do You Smoke? 1 PPW Information not available 03/13/2024 Do You Or Have You Ever Used Any Other Forms Of Tobacco Or Nicotine? No Information not available 03/13/2024 Sex: Unknown Functional Status None recorded. Mental Status None recorded. Family History Relationship Description Onset Age of this Age Resolved Age Notes LastModified by Organization Details LastModified Time Father No current problems or disability [email or web address] Not available 08/02 10:49:48 Mother No current problems or disability [email or web address] Not available 08/02 10:49:48 Medical History No medical history recorded. Immunizations Vaccine Type Date Status Note Provider Nam e and Address Organization Details Recorded Time COVID-19, mRNA, LNP-S, PF, 30 mcg/0.3 mL dose 1 completed Anais garcia, [facility] 08/22/2020 14:56:28 COVID-19, mRNA, LNP-S, PF, 30 mcg/0.3 mL dose 1 completed Anais garcia, [place] - [facility] 08/22/2020 15:02:02 Influenza, split virus, quadrivalent, preservative 6 completed Not Available [facility] 04/21/2019 02:46:02 influenza, unspecified formulation 7 completed GARRY Olmos Attn: Accounting[address] [place], [address], [place] [facility] 03/13/2024 16:39:18 influenza, unspecified formulation 3 completed GARRY Olmos Attn: Accounting[address] [place], [address], [place] [facility] 03/13/2024 16:39:18 influenza, unspecified formulation 9 completed GARRY Olmos Attn: Accounting[address] [place], [address], [place] [facility] 03/13/2024 16:39:18 Tdap 7 completed Not Available [facility] 04/21/2019 02:34:49 Past Encounters Encounter ID Performer Location Encounter Start Date Encounter Closed Date Diagnosis/Indication Diagnosis SNOMED-CT Code Diagnosis ICD10 Code Diagnosis Note [id number] Maggy Cathy [facility] ([facility]) [address] [place] [address] 08/28/2014 12:08:11 08/29/2014 15:58:13 Smoker 19420470 Has failed patches, will try bupropion for smoking cessation. Understand s typical therapy is 7-12 weeks and that he should stop smoking with 5-7 days of starting medication . See back as needed. Allergic rhinitis 01275094 Will have him try OTC antihistam ine for relief. Should continue netipot use and can continue Sudafed as needed. If not resolving can send back to ENT. [id number] GARRY Olmos [place] [facility] ([facility]) [address] [place] [address] 01/29/2016 14:56:15 01/30/2016 09:22:59 Active immunization 95688792 Z23 Pre-surger y evaluation 483032681 Z01.818 Form completed and faxed for removal of right cataract. He is a low risk for this low risk procedure. [id number] GARRY Olmos [facility] ([facility]) [address] [place] [address] 08/04/2016 15:21:59 08/17/2016 17:24:23 Removal of gilbert 25734867 Z48.02 Removed gilbert without complicati on. Continue to monitor top of surgical site for drainage. History of appendectomy 724845419 Z98.890 Continue to monitor surgical wound. Paperwork completed to remain off work for an additional month. Encouraged walking and IS exercises. See back in 3 weeks to assess ability to return to work. Crohn's disease 17906200 K50.90 F/u with GI for current flare. Positive s creening for depression on PHQ-9 (Patient Health Questionnaire 9) 4156061330 61253 Z13.89 Will continue to monitor. Feels mood changes are from recent hospitaliz ation [id number] DAVONTE Geller [facility] ([facility]) [address] [place] [address] 08/06/2016 16:19:30 08/09/2016 17:02:04 Non-healing surgical wound 176242043 T81.89XA Surgical site is clearly infected and will likely need surgical consult or thorough I&D at a minimum. I have advised pt to go to ER for further assessment and imaging as deemed necessary. I have also obtained a sample of the purulent drainage for C&S while pt in office. [id number] GARRY Olmos [facility] ([facility]) [address] [place] [address] 08/18/2016 14:31:35 09/02/2016 09:51:34 Dehiscence of surgical wound 15735311 T81.31XS RTC in 2 weeks for wound check. Monitor for s/s of infection. Return for ER for fever over 100.5 or increased drainage from wound. [id number] GARRY Olmos e [facility] ([facility]) [address] [place] [address] 08/27/2016 14:20:57 09/03/2016 10:03:51 Dehiscence of surgical wound 85351673 T81.31XS RTC in 2 weeks for wound check. Monitor for s/s of infection. Return for ER for fever over 100.5 or increased drainage from wound. [id number] MD [place] Cr[facility] ([facility]) [address] [place] [address] 09/06/2016 12:15:26 09/08/2016 11:53:54 Dehiscence of surgical wound 80181575 T81.31XS Stop tape around bandages. Wrapped abdomen in PATY wrap. Monitor possible abscess at right base of incision and use warm, moist compresses over area for 15 minutes 3-4 times a day for comfort. RTC in 2 weeks for wound check. Monitor for s/s of infection. Return for ER for fever over 100.5 or increased drainage from wound. [id number] GARRY Olmos [facility] ([facility] [address]) [address] [place] [address] 09/21/2016 11:58:18 09/23/2016 13:02:35 Dehiscence of surgical wound 61639450 T81.31XS Will refer to general surgery and wound care with new opening on surgical site. Continue wrapping abdomen in PATY wrap. Monitor for s/s of infection. Return for ER for fever over 100.5 or increased drainage from wound. [id number] GARRY Olmos ([facility] [address]) [address] [place] [address] 01/12/2017 14:39:28 01/14/2017 10:00:44 Crohn's disease 49476814 K50.90 Keep close f/u with GI. Incisional hernia 852899 000 K43.2 s/p api. Will need additional imaging and gen surg consult but is currently without insurance and waiting for medicaid approval. Will contact office once insurance is approved for referral. Discussed signs of bowel strangulat ion and to report to the ER for symptoms. [id number] [facility]Y [facility]mos[facility] ([facility] [address]) [address] [place] [address] 02/28/2017 14:07:38 03/01/2017 09:54:34 History and physical examination, school 11122355 Z02.0 Needs Tdap. No red flags to exclude from school participat ion. School form completed and given back to Pt. Active or passive immunization 747398234 Z23 [id number] GARRY Olmos [place] [facility] ([facility] [address]) [address] [place] [address] 06/24/2017 14:32:16 06/27/2017 11:34:11 History of repair of umbilical hernia 226944318 Z98.890 Keep close f/u with surgeonMon itor for s/s of infectionC ontinue to wear abdominal binder [id number] GARRY Olmos [place] [facility] ([facility] [address]) [address] [place] [address] 08/16/2017 10:37:20 08/16/2017 16:22:17 Adult health examination 363059450 Z00.00 -Immunizat ions up to date-Negat juan jose depression screen-Nee ds baseline labs-Discu ssed nutrition and exercise Tobacco de pendence syndrome 06113914 F17.200 -Discussed smoking cessation- is trying to wean himself [id number] Marbella Hope e [facility] ([facility]) [address] [place] [address] 06/20/2019 15:50:40 06/21/2019 08:39:17 Adult health examination 069026440 Z00.00 -Immunizat ions up to date-Negat juan jose depression screen-Dis cussed nutrition and exercise Lumbago with sciatica 20 1703736 M54.41 -can try stretches at home-cont tylenol as needed-can send to PT if not getting better [id number] GARRY Olmos [place] [facility] ([facility] [address]) [address] [place] [address] 03/13/2024 16:26:11 03/15/2024 10:09:43 Crohn's disease 48563396 K50.90 -needs new GI referral (previousl y Dr. Pearce) -reports good control Essential hypertension 25159893 I10 BP Goal: {{Less than 140/90* Le ss than 150/90}}BP Controlled : {{yes no*} } new dx. Check labs and initiate amlodipine Healthy Weight: {{4'10= 91-118 lbs 4'11= 94-123 lbs 5'= 97-127 lbs 5'1= 100-131 lbs 5'2= 104-135 5' 3= 107-140 lbs 5'4= 110-144 lbs 5'5= 115-149 lbs 5'6= 118-154 lbs 5'7= 121-158 lbs 5'8= 125-163 lbs 5'9= 128-168 lbs 5'10= 132-173 lbs 5'11= 136-178 lbs 6'= 140-183 lbs* 6'1= 144-188 lbs 6'2= 148-193 lbs 6'3= 152-199 lbs 6'4= 156-204 lbs}}Discu ssed: Low sodium balanced diet, moderate exercise at least 3-4 times per week for an average of 40 minutes, limiting alcohol to 1 drink per day (F) or 2 drinks per day (M), and smoking cessation if currently smoking.Ne xt Visit: {{1* 2 3 4 5 6 7 8 9 10 11 12} }{{week(s) month(s)* }} Thyroid di sorder screening 427977369 Z13.29 Cyst of tonsil 231157173 J35.8 -refer to ENT Obesity 661122151 E66.9 Health Concerns Section Related Observation LastModified by Organization Detai ls LastModified Time None Recorded Concern Status LastModified by Organization Details LastModified Time None Recorded Advance Directives Directive None Recorded Payers Encounter Date Sequence Insurance Name Policy Number Policy Hough Covered Member ID Hough Member ID Guarantor Name 02/28/2017 [place] [employer] [place] [employer] Jonel Lopez [id number] Jonel Lopez 06/24/2017 1 [facility] - DOS PRIOR TO 2020 (MEDICAID REPLACEMENT - HMO) Jonel Lopez [id number] Jonel Lopez 08/16/2017 1 [facility] PRIOR TO 10/02/2020 (MEDICAID REPLACEMENT - HMO) Jonel John [id number] Jonel John 06/20/2019 1 [facility] PRIOR TO 10/02/2020 (MEDICAID REPLACEMENT - HMO) Jonel Lopez [id number] Jonel Lopez 03/13/2024 1 [facility] ON OR AFTER 10/02/20 (MEDICAID REPLACEMENT - HMO) Jonel Lopez [id number] Jonel Lopez Notes Date Note Type Note Provider Name and Address Organization Details Recorded Time 02/28/2017 text/html Here today for a school physical. Reports that he needs a Tdap vaccine, all other immunizations UTD. GARRY Olmos Attn: Accounting[address] [place], [address], [facility] - [place] 02/28/2017 15:32:41 06/24/2017 text/html Here today for hospital f/u. Had umbilical hernia repaired. Notes pain has been well controlled. Has been wearing an abdominal binder. Denies s/s of infection. Had a f/u with the surgeon this morning. Does note a large hematoma under the incision. ROS otherwise negative. GARRY Olmos Attn: Accounting[address] [place], [address], [facility] - [facility] 06/24/2017 15:00:48 08/16/2017 text/html Here today for wellness visit and needs clearance to participate in a summer camp. GARRY Olmos Attn: Accounting[address] [place], [address], [place] [facility] 08/16/2017 11:56:19 06/20/2019 text/html Here today for annual physical. Marbella garcia, [place] - [facility] 02/20/2020 10:45:18 03/13/2024 text/html Jonel is here today to re-est care He notes no changes in his medical hx in the last 4 years other than weight gain. He notes his crohn's disease is well controlled on humira. GARRY Olmos Attn: Accounting[address] [facility], [place], [address], [facility] - [place] 03/13/2024 17:00:46
--- OUTSIDE RECORDS SUMMARY | 2024-05-25 06:01 | XMS_ITS | Referral Summary ---
Author Organization [facility] Address [address] [place] [address] Care Team Providers Care Website/Blog Editor Name Role Phone Rodney Crissotomoy WANDY Primary Care Provider Source Comments [facility],non-owned Affiliates and Associated Physician Practices is amultiple site organization consisting of ambulatory clinics and hospital sitesin [place], [place], [place] and [place]. This disclosure is being madepursuant to the Care Everywhere program and may not contain all information available regarding this patient. Last updated 17.[facility] Allergies No known active allergies Immunizations Name Administration Dates Next Due INFLUENZA VACCINE, QUADR. (F LUZONE; FLULAVAL; FLUARIX; AFLURIA QUADRIVALENT; 6MO+), 0.5 ML (IIV4) 02/16/2019 Social History Tobacco Use Types Packs/Day Years Used Date Smoking Tobacco: Never Assessed Sex and Gender Information Value Date Recorded Sex Assigned at Not on file Gender Identity Not on file Sexual Orientation Not on file Plan of Treatment Not on file Care Teams Website/Blog Editor Relationship Specialty Start Date End Date Atiya Crisostomo APRN-CNP [address] [phone] PCP - General Nurse Practitioner Family 02/16/19
--- OUTSIDE RECORDS SUMMARY | 2024-05-25 06:01 | XMS_ITS | Patient Health Summary ---
Author Organization [facility] Address [address] [place] [address] Care Team Providers Care Manager Of Business Name Role Phone Atiya Crisostomo APRNSTEPHANIE Primary Care Provider Note from [facility],non-owned Affiliates and Associated Physician Practices is amultiple site organization consisting of ambulatory clinics and hospital sitesin [place], [place], [place] and [place]. This disclosure is being madepursuant to the Care Everywhere program and may not contain all information available regarding this patient. Last updated 17.[facility] Allergies No known active allergies Immunizations * INFLUENZA VACCINE, QUADR. (FLUZONE; FLULAVAL; FLUARIX; AFLURIA QUADRIVALENT; 6MO+), 0.5 ML (IIV4)(Given 02/16/2019) Social History Tobacco Use Types Packs/Day Years Used Date Smoking Tobacco: Never Assessed Sex and Gender Information Value Date Recorded Sex Assigned at Not on file Gender Identity Not on file Sexual Orientation Not on file Care Teams Manager Of Business Relationship Specialty Start Date End Date Atiya Crisostomo APRN-CNP [address] [place] [phone] PCP - General Nurse Practitioner Family 02/16/19
--- OUTSIDE RECORDS SUMMARY | 2024-05-25 06:01 | XMS_ITS | Clinical Summary ---
Author Organization [facility] Address [address] [place] [address] Care Team Providers Care Crepe Laminator Operator Name Role Phone Atiya Crisostomo EDITOR MANAGING NEWSPAPER-MARINE SERVICE MANAGER Primary Care Provider Source Comments [facility],non-owned Affiliates and Associated Physician Practices is amultiple site organization consisting of ambulatory clinics and hospital sitesin [place], [place], [place] and [place]. This disclosure is being madepursuant to the Care Everywhere program and may not contain all information available regarding this patient. Last updated 17.[facility] [employer] Allergies No known active allergies Immunizations Name [...] Orientation Not on file Plan of Treatment Health Maintenance Due Date Last Done Comments LIPID TESTING 1980 HIV SCREENING 01/21/1995 HEPATITIS C SCREENING 01/17/1998 DTAP/TDAP/TD VACCINES (1 - Tdap) 01/21/1999 HEPATITIS B VACCINE (1 of 3 - 19+ 3-dose series) 01/21/1999 COVID-19 VACCINE ( - 2023-2 5 season) 2023 INFLUENZA VACCINE (#1) 2023 9, 01/29/2016 DEPRESSION SCREENING 04/04/2024 ZOSTER VACCINE (1 of 2) 01/21/2030 HIB VACCINE Aged Out No longer eligi ble based on patient's age to complete this topic HPV VACCINE Aged Out No longer eligi ble based on patient's age to complete this topic MENINGOCOCCAL (Group B) VACCINE Aged Out No longer eligible b ased on patient's age to complete this topic MENINGOCOCCAL VACCINE Aged Out No haresh grey eligible based on patient's age to complete this topic PNEUMOCOCCAL VACCINE Aged Out No long er eligible based on patient's age to complete this topic Care Teams Crepe Laminator Operator Relationship Specialty Start Date End Date Atiya Crisostomo APRN-STEPHANIE [address] [place] [address] [address] [place], [place] [phone] PCP - General Nurse Practitioner Family 02/16/19
--- NOTE | 2024-05-25 07:07 | WPDHPUPDATE1 ---
History and Physical Update Update Date/Time: 05/25/24 07:07 History and Physical has been reviewed, including an updated exam of the patient. There are NO changes in the patient's condition. Risks, benefits, and alternatives have been discussed and questions answered. Patient agrees to proceed with procedure.
--- NOTE | 2024-05-25 08:06 | P.PNAN_ITS ---
Anes - Initial Pre Proc Eval Procedure: Operation Date: 05/25/24 09:00 Proposed Procedures p Tonsillectomy And Adenoidectomy - Brianna Agrawal MD Date/Time: 05/25/24 08:06 Surgeon: Brianna Agrawal MD Pre Op Diagnosis: chronic tonsilitis Patient Data Age: 44 Gender: M Height: 1.83 m Weight: 105 kg Allergies Allergy/AdvReac Type Severity Reaction Status Date / Time No Known Allergies Allergy Unverified 05/23/24 15:02 Home Medications ?Medication ?Instructions ?Recorded ?Confirmed ?Type azelastine 137 mcg (0.1 %) nasal 1 spray intranasal Q12H 1 month 05/11/24 05/23/24 Rx spray #30 mL amlodipine 5 mg tablet 5 mg PO HS 05/23/24 05/23/24 History Patient hx anesthesia problems: none Family hx anesthesia problems: none Results Review: All pre-operative results and documents have been reviewed as part of the pre- operative evaluation. [facility] Past Medical History Medical History (Updated 05/25/24 @ 08:06 by Adithya Duffy DO) Hypertension Crohn disease Allergic rhinitis Left-sided tinnitus Cryptic tonsil Tonsil neoplasm Tonsil asymmetry Cyst of tonsil Social History Social History Smoking packs per day: 1 Smoking cigarettes per day: 20.0 Years smoked: 15 Smoking pack-years: 15.00 Smoking status: Former smoker Tobacco type: cigarettes Additional smoking assessment comments: QUIT 2022 Alcohol intake: current Drinks per week: 7 Living arrangements: with family Anes - Eval Final PreProcedure Day of Procedure 05/25/24 08:06 Patient weight: obese Heart: regular rate and rhythm Lungs: clear to auscultation Airway: Mallampati scale class II Neurological: alert and oriented Last oral intake: >/= 8 hours ASA classification: III Emergent: no Anesthetic plan: proceed Anesthesia type and monitoring: general ETT and standard monitoring Results Review: All pre-operative results and documents have been reviewed as part of the pre- operative evaluation. Informed Consent: The patient's anesthetic plan and its attendant risks and benefits were discussed with the patient/family/POA. Questions were solicited and answers provided to the satisfaction of the patient/family/POA.
--- NOTE | 2024-05-25 08:11 | ECG_ITS ---
Test Date: 2024-05-25 08:25:09 Measurements Intervals Deshler Rate: 59 P: 30 DC: 165 QRS: -8 QRSD: 95 T: -1 QT: 379 QTc: 377 Interpretive Statements SINUS BRADYCARDIA INCOMPLETE RIGHT BUNDLE BRANCH BLOCK BORDERLINE T WAVE ABNORMALITY- INFERIOR LEADS BORDERLINE ECG Electronically Signed On 05-25-2024 08:26:13 CHAINSTITCH SEWING MACHINE OPERATOR by Boby De D.O.
[2024-05-25] MEDS: LACTATED RINGERS 1,000 ML 30 ML IV CONT ×2 (08:30→10:38)
[2024-05-25] MEDS: ACETAMINOPHEN 500 MG TABLET 1000 MG PO (08:38)
--- NOTE | 2024-05-25 10:13 | W.PM.PROC2 ---
Procedure Note - Detailed Date of Procedure 05/25/24 Pre-op Diagnosis chronic tonsilitis Post-op Diagnosis Same Procedure Performed ? Tonsillectomy Surgeon Brianna Agrawal MD Anesthesia General Description of Procedure The patient was seen in the preoperative area, informed consent was checked and confirmed. The patient was taken to the operating room, sedated and placed under general anesthesia with an endotracheal intubation. Eyes were taped and were prepped and draped in the usual sterile fashion. We started with tonsillectomy procedure. Nathalia-Michael retractor was then placed, and the patient was suspended. Then, we proceeded with tonsillectomy, starting on the right side. The tonsil was retracted and dissected along its capsule using a Ander dissector/Bipolar cautery. Bleeding was controlled with a suction cautery. Bismuth powder was applied to the tonsil fossa. We proceeded to the Left side. The tonsil retracted and dissected along its capsule using a Ander dissector. Bleeding was controlled with a suction cautery; bismuth was applied to the fossa. Tonsil fossae were examined for 5 minutes without tension removed and there was no bleeding. Nathalia-Michael retractor was then removed and red rubber catheter was removed. Complications No immediate complications Condition Stable Disposition PACU [facility] Billing Surgery - Charge Forward: Surgery Billing
--- NOTE | 2024-05-25 10:18 | W.PM.PROC2 ---
Procedure Note - Detailed Date of Procedure 05/25/24 Pre-op Diagnosis tonsil asymmetry left tonsil mass chronic tonsillitis Post-op Diagnosis Same Procedure Performed Tonsillectomy Surgeon Brianna Agrawal MD Anesthesia General Indications 44 year old Male with a history of tonsil asymmetry ,left tonsil mass and chronic tonsillitis . Patient? presents today for tonsillectomy. The risks (including bleeding, injury to the teeth ,gum, or lips ,TMJ problems,delayed healing that may require further surgery ), benefits, alternatives of the surgery, as well as the expected postoperative course were discussed with the patient and family.? They were provided ample time to discuss their questions and concerns.? They have provided informed consent. Findings cryptic tonsils Description of Procedure After the patient was identified in the preoperative holding area, patient was transported to the operating room.? Upon arrival in the OR, the patient and intended procedure were reviewed.?The Patient?was placed in a supine position on the table.?Anesthesia was induced, and the patient was intubated. A Nathalia-Michael mouth gag was placed in the patient's mouth and opened to reveal tonsils which were? +1 in size. The palate was normal by visualization and palpation.? The tonsils were grasped with a curved Allis clamp and removed sequentially using Bizact device ,and hemostasis was secured using of Bovie. The mouth gag closed for 30 seconds and reopened to assess for bleeding. No further bleeding was noted. The patient was then allowed to awaken in the OR.The Patient?was then extubated and taken to recovery in stable condition. Estimated Blood Loss 10 (ML) Drains No Packing No Pathology Yes (Right and left tonsils ) Complications None Condition Stable Disposition PACU [facility] Billing Surgery - Charge Forward: Surgery Billing
[2024-05-25] MEDS: fentaNYL CITRATE INJ (*CRX) 100 MCG/2 ML VIAL 25 MCG IV PUSH ×6 (10:30→11:27)
== END 2024-05-25 12:26 | disposition home or self-care (01) ==
PROVIDERS: PCP Nurse Practitioner Family; Visit Provider Otolaryngology Otolaryngology/Facial Plastic Surgery
PROC: (CPT 42826; principal; 2024-05-25 09:00)
DX: J35.01 Chronic tonsillitis (principal); K09.8 Other cysts of oral region, not elsewhere classified; I10 Essential (primary) hypertension; K50.90 Crohn's disease, unspecified, without complications; G89.18 Other acute postprocedural pain; R00.1 Bradycardia, unspecified; I45.10 Unspecified right bundle-branch block; E66.9 Obesity, unspecified; Z68.32 Body mass index [BMI] 32.0-32.9, adult; Z87.891 Personal history of nicotine dependence
CPT/HCPCS: 42826; 88304; 93005; A9270; J0690; J1100; J1171; J2003; J2250; J2405; J2704; J3010; J7120